=== PATIENT | female | born 1970 | race Two or more races ===

== ENCOUNTER 2016-12-15 09:49 | Emergency (ER) | payer SELFPAY ==
[~2016-12-15] VITALS: Ht 157.5 cm; Wt 72.6 kg
[2016-12-15 10:05] VITALS: BP 163/82
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
[2016-12-15] MEDS ORDERED: METH-37 PO (11:21)
[2016-12-15] MEDS ORDERED: TRAM-29 PO (11:21)
== END 2016-12-15 11:36 | disposition home or self-care (01) ==
LOC: ER 09:49
DX: M25.511 Pain in right shoulder (principal)
CPT/HCPCS: 72040; 73030; 99284